=== PATIENT | female | born 1960 | race Caucasian/White ===

== ENCOUNTER 2017-02-08 11:47 | Emergency (ER) | payer OTHER ==
[~2017-02-08] VITALS: Ht 177.8 cm; Wt 176.9 kg
[~2017-02-08 11:47] MED LIST: BACTRIM DS TAB1 EACH PO; CLEOCIN HCL150 MG PO; DILTIAZEM 24HR300 MG PO; DOXYCYCLINE 10100 MG PO; FUROSEMIDE 40 M40 M1 PO; KLOR-CON20 MEQ PO; NORCO 10-325 T1 EACH PO; NORCO 5-325 TA1 EACH PO; PREDNISONE 20 M20 MG PO; PROMETHAZINE V180 ML PO; RANITIDINE 150150 MG PO; TOPROL XL100 MG PO; ULTRAM 50MG TAB50 MG PO; ZESTORETIC 20-1 EAC1 PO
[2017-02-08] MEDS ORDERED: DILTIAZEM 24HR180 M2 PO (12:06)
[2017-02-08] MEDS ORDERED: GLUCOPHAGE XR750 MG PO (12:07)
[2017-02-08] MEDS ORDERED: DOXYCYCLINE 10100 M1 PO (12:22)
== END 2017-02-08 12:24 | disposition home or self-care (01) ==
LOC: ER 11:47
DX: L03.115 Cellulitis of right lower limb (principal); I10 Essential (primary) hypertension; Z90.710 Acquired absence of both cervix and uterus; Z90.49 Acquired absence of other specified parts of digestive tract; Z90.721 Acquired absence of ovaries, unilateral; Z88.1 Allergy status to other antibiotic agents; Z88.6 Allergy status to analgesic agent; Z88.8 Allergy status to other drugs, medicaments and biological substances

== ENCOUNTER 2017-05-30 21:34 | Emergency (ER) | payer OTHER ==
[~2017-05-30] VITALS: Ht 177.8 cm; Wt 176.9 kg
[~2017-05-30 21:34] MED LIST changes: +DILTIAZEM 24HR180 M2 PO; +DOXYCYCLINE 10100 M1 PO; +GLUCOPHAGE XR750 MG PO
[2017-05-30] MEDS ORDERED: BACTRIM DS TAB1 EACH PO (22:25)
== END 2017-05-30 22:34 | disposition home or self-care (01) ==
LOC: ER 21:34
DX: L02.31 Cutaneous abscess of buttock (principal); I10 Essential (primary) hypertension; Z90.710 Acquired absence of both cervix and uterus; Z98.890 Other specified postprocedural states; Z88.1 Allergy status to other antibiotic agents; Z88.6 Allergy status to analgesic agent; Z88.8 Allergy status to other drugs, medicaments and biological substances

== ENCOUNTER 2019-11-09 16:03 | Emergency (ER) | payer OTHER ==
[~2019-11-09] VITALS: Ht 177.8 cm; Wt 153.8 kg
[2019-11-09 16:42] LABS: ABSOLUTE NEUTROPHILS 2.8 thou/uL (1.4-8.2); EOSINOPHILS 1.1 % (0.0-3.0); HEMATOCRIT 42.3 % (37.0-47.0); HEMOGLOBIN 14.3 gm/dL (12.0-15.0); LYMPHOCYTES 40.1 % (24.0-44.0); MCH 28.7 pg (26.0-34.0); MCHC 33.8 g/dL (28.0-37.0); MONOCYTES 5.4 % (1.0-8.0); PLATELET COUNT 159 thou/uL (150-400); POLYS 52.4 % (36.0-66.0); RBC 4.97 mil/uL (4.20-5.00); RDW 14.6 % (10.5-14.5); WBC 5.3 thou/uL (4.0-11.0)
[2019-11-09 16:55] LABS: ANION GAP 9 mmol/L (7-16); BUN 16 mg/dL (7-18); CALCIUM 9.1 mg/dL (8.5-10.1); CHLORIDE 102 mmol/L (98-107); CO2 27 mmol/L (21-32); GLUCOSE 239 mg/dL (74-106); SODIUM 138 mmol/L (136-145)
[2019-11-09 16:59] LABS: URINE BILIRUBIN NEGATIVE (Negative); URINE BLOOD NEGATIVE (Negative); URINE CLARITY CLEAR; URINE COLOR YELLOW; URINE GLUCOSE-RANDOM* TRACE (Negative); URINE KETONES NEGATIVE (Negative); URINE LEUKOCYTES-REFLEX NEGATIVE (Negative); URINE NITRITE-REFLEX NEGATIVE (Negative); URINE PROTEIN (DIPSTICK) 1+ (Negative); URINE SPECIFIC GRAVITY >= 1.030 (1.005-1.035); URINE UROBILINOGEN 0.2 E.U./dl (0.2-1.0)
[2019-11-09] MEDS ORDERED: LIDODERM1 EACH TOP (17:00)
[2019-11-09] MEDS ORDERED: DEMADEX20 MG PO (17:01)
[2019-11-09] MEDS ORDERED: ATORVASTATIN CA20 MG PO (17:01)
[2019-11-09] MEDS ORDERED: OMEPRAZOLE40 MG PO (17:01)
[2019-11-09] MEDS ORDERED: PROAIR HFA8.5 GM INH (17:02)
[2019-11-09] MEDS ORDERED: TRAVOPROST2.5 ML EA. EYE (17:02)
[2019-11-09 17:04] LABS: MAGNESIUM 1.7 mg/dL (1.8-2.4); TROPONIN-I <0.06 ng/mL (<0.06)
[2019-11-09 17:11] LABS: SQUAMOUS >10 Many /LPF (0-3)
[2019-11-09 17:12] LABS: CASTS None Seen /LPF (None Seen); CRYSTALS None Seen /LPF (None Seen)
[2019-11-09 17:13] LABS: URINE RBC None Seen /HPF (0-2); URINE WBC-REFLEX 6-15 Few /HPF (0-5)
[2019-11-09 18:21] VITALS: BP 121/65
--- NOTE | 2019-11-10 09:38 | EKG ---
[facility] [place] [address] ELECTROCARDIOGRAM REPORT Name: JESSICA YAN Room #: [facility]#: [id number] Admission: 11/09/19 Attend Phys: Discharge: 11/09/19 Date of : 56 Report #: [id number] THIS REPORT FOR: cc: Candy Pastor MD, Shari L. MD Lundgren,Rangel Ann MD [facility] ~ THIS REPORT FOR: //name// [facility] ED Test Date: 2019-11-09 Test Time: 16:14:07 Pat Name: JESSICA YAN Department: Room: Gender: Wholesale Representative: [facility] : 1960 Requested By: Beau Alfaro Order Number: [id number] MD: Rangel Sandoval Measurements Intervals [place] Rate: 73 P: -75 [place]: 146 QRS: -34 QRSD: 114 T: -4 QT: 438 QTc: 483 Interpretive Statements Sinus rhythm Borderline IVCD with LAD Poor R wave progression Borderline T abnormalities Compared to ECG 02/10/2004 10:00:01 No significant change was found Electronically Signed On 11-10-2019 9:37:13 CDT by Rangel Sandoval [email or web address] <ELECTRONICALLY SIGNED> By: Rangel Sandoval MD, [facility] 11/10/19 0937 1614 1614 Rangel Sandoval MD, [facility] /EPI
== END 2019-11-09 18:22 | disposition home or self-care (01) ==
LOC: ER 16:03
PROVIDERS: Emergency Medicine
DX: R42 Dizziness and giddiness (principal); I10 Essential (primary) hypertension; Z88.1 Allergy status to other antibiotic agents; Z88.8 Allergy status to other drugs, medicaments and biological substances; Z88.2 Allergy status to sulfonamides; Z79.899 Other long term (current) drug therapy; Z90.710 Acquired absence of both cervix and uterus; Z90.49 Acquired absence of other specified parts of digestive tract; Z79.82 Long term (current) use of aspirin